=== PATIENT | male | born 2000 | race Hispanic/Latino ===

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

== ENCOUNTER 2022-03-25 10:25 | Emergency (ER) | payer OTHER | END 2022-03-25 12:27 | LOC: ERS 10:25 | DX: S09.90XA Unspecified injury of head, initial encounter (principal); S20.222A Contusion of left back wall of thorax, initial encounter; W22.8XXA Striking against or struck by other objects, initial encounter | CPT/HCPCS: 99283 ==